=== PATIENT | female | born 1950 | race Two or more races ===

== ENCOUNTER 2018-07-01 05:45 | Day surgery (SDC) | payer OTHER ==
[~2018-07-01 05:45] MED LIST: AMOX1TAB5 PO; IMODIUM A-D2 MG PO; INTEGRA F CAPS1 EACH PO; LEVOFLOXACIN500 MG PO; LOSARTAN-HCTZ1 EACH PO; METFORMIN HCL500 M1 PO; OXYC1TAB9 PO; XELODA500 MG PO
== END 2018-07-01 10:00 | disposition home or self-care (01) ==
LOC: AMB-ENDOS 05:45
DX: D12.3 Benign neoplasm of transverse colon (principal); D12.4 Benign neoplasm of descending colon; E11.9 Type 2 diabetes mellitus without complications; I10 Essential (primary) hypertension; K62.7 Radiation proctitis; Z12.11 Encounter for screening for malignant neoplasm of colon

== ENCOUNTER 2019-12-15 04:51 | Day surgery (SDC) | payer OTHER ==
[2019-12-15] MEDS ORDERED: PROCTOZONE-HC30 GM RECTAL (08:04)
== END 2019-12-15 09:35 | disposition home or self-care (01) ==
LOC: AMB-ENDOS 04:51 → ADM 13:30
DX: K62.89 Other specified diseases of anus and rectum (principal); K62.7 Radiation proctitis; K64.5 Perianal venous thrombosis